=== PATIENT | male | born 1980 | race Caucasian/White ===

== ENCOUNTER 2019-08-24 07:08 | Day surgery (SDC) | payer OTHER ==
[2019-08-21 09:32] LABS: BASOPHILS # (AUTO) 0.03 x10^3/uL (0-0.1); BASOPHILS % (AUTO) 1 % (0-1); EOSINOPHILS # (AUTO) 0.06 x10^3/uL (0-0.4); EOSINOPHILS % (AUTO) 1 % (1-7); LYMPHOCYTES # (AUTO) 1.55 x10^3/uL (1-3.4); LYMPHOCYTES % (AUTO) 26 % (22-44); MD NO; MEAN CORPUSCULAR HEMOGLOBIN 31.6 pg (27.5-34.5); MEAN CORPUSCULAR HGB CONC 34.1 g/dL (33.2-36.2); MEAN CORPUSCULAR VOLUME 92.8 fL (81-97); MEAN PLATELET VOLUME 8.4 fL (7.4-10.4); MONOCYTES # (AUTO) 0.55 x10^3/uL (0.2-0.8); MONOCYTES % (AUTO) 9 % (2-9); NEUTROPHILS % (AUTO) 64 % (42-75); PLATELET COUNT 248 x10^3/uL (130-400); RED BLOOD COUNT 5.25 x10^6/uL (4.38-5.82); RED CELL DISTRIBUTION WIDTH 13.1 % (9.4-14.8)
[2019-08-21 09:39] LABS: ANION GAP 9 mmol/L (5-15); CALCIUM 8.9 mg/dL (8.5-10.1); CHLORIDE 105 mmol/L (98-107); CREATININE 1.16 mg/dL (0.7-1.3)
[2019-08-21 09:45] LABS: INTERNATIONAL NORMALIZED RATIO 1.02 (0.93-1.1); PROTHROMBIN TIME 10.8 Seconds (9.6-11.5)
[2019-08-21 10:07] LABS: MICROSCOPIC NOT IND
[~2019-08-24] VITALS: Ht 175.3 cm; Wt 80.3 kg
[~2019-08-24 07:08] MED LIST: BACITRACIN 50,000 UNIT ONE; BUPIVACAINE/PF-EPI 0.5% 1:200K ONE; GABAPENTIN PO; OXYC5CAP2 PO; VANCOMYCIN 1,000 MG ONE
[2019-08-24 07:20] VITALS: BP 138/98
[2019-08-24] MEDS ORDERED: LACTATED RINGERS 1,000 ML IV SCH (07:25)
[2019-08-24] MEDS ORDERED: FENTANYL PF 250 MCG/5ML ONE (09:48)
[2019-08-24] MEDS ORDERED: MIDAZOLAM 1 MG/ML, 2ML ONE (09:48)
[2019-08-24] MEDS ORDERED: HYDROmorphone 2 MG/ML, 1ML IVPush PRN (11:00)
[2019-08-24] MEDS ORDERED: ALBUTEROL SULFATE 2.5 MG/3 ML NPPB PRN (11:00)
[2019-08-24] MEDS ORDERED: KETOROLAC 30 MG/1 ML IV PRN (11:00)
[2019-08-24] MEDS ORDERED: ACETAMINOPHEN 325 MG TABLET PO PRN (11:00)
[2019-08-24] MEDS ORDERED: LABETALOL 5MG/ML, 20ML IV PRN (11:00)
[2019-08-24] MEDS ORDERED: OXYcodone 5 MG/5 ML ORAL.SOL UDC PO PRN (11:00)
[2019-08-24] MEDS ORDERED: FENTANYL PF 100 MCG/2ML IV PRN (11:00)
[2019-08-24] MEDS ORDERED: MEPERIDINE/PF 25MG/0.5ML IVPush PRN (11:00)
[2019-08-24] MEDS ORDERED: DIAZEPAM 5 MG/ML, 2ML IVPush PRN (11:00)
[2019-08-24] MEDS ORDERED: PROMETHAZINE 25 MG/ML, 1ML IV PRN (11:00)
[2019-08-24] MEDS ORDERED: hydrALAzine 20 MG/ML, 1ML IV PRN (11:00)
[2019-08-24] MEDS ORDERED: ROCURONIUM 10MG/ML,5ML ONE (11:49)
[2019-08-24] MEDS ORDERED: CEFAZOLIN 1,000 MG ONE (11:49)
[2019-08-24] MEDS ORDERED: SUCCINYLCHOLINE 20 MG/ML, 10ML ONE (11:49)
[2019-08-24] MEDS ORDERED: GLYCOPYRROLATE 0.2MG/1ML, 5ML ONE (11:49)
[2019-08-24] MEDS ORDERED: NEOSTIGMINE 1 MG/ML, 10ML ONE (11:49)
[2019-08-24] MEDS ORDERED: PROPOFOL 10 MG/ML, 20ML ONE (11:49)
[2019-08-24] MEDS ORDERED: DEXAMETHASONE 4 MG/ML, 1ML ONE (11:49)
[2019-08-24] MEDS ORDERED: ONDANSETRON 2MG/ML, 2ML ONE (11:49)
== END 2019-08-24 13:35 | disposition home or self-care (01) ==
LOC: OUT 07:08 → EDSTATUS 10:30 → OUT 13:35
PROVIDERS: ATTEND Neurological Surgery
DX: M51.16 Intervertebral disc disorders with radiculopathy, lumbar region (principal); M51.17 Intervertebral disc disorders with radiculopathy, lumbosacral region; M48.07 Spinal stenosis, lumbosacral region; M43.17 Spondylolisthesis, lumbosacral region; Z79.01 Long term (current) use of anticoagulants; Z79.891 Long term (current) use of opiate analgesic; Z79.899 Other long term (current) drug therapy; Z88.5 Allergy status to narcotic agent; Z82.61 Family history of arthritis
CPT/HCPCS: 36415; 63030; 71046; 72100; 80048; 81003; 85025; 85610; 85730; 93005; J0330; J0690; J1100; J2250; J2405; J2704; J2710; J3010; J3370; J7120